=== PATIENT | female | born 1945 | race Caucasian/White ===

== ENCOUNTER 2021-11-18 12:11 | Inpatient (IN) | payer MEDICARE ==
[~2021-11-18] VITALS: Ht 152.4 cm; Wt 47.6 kg
[2021-11-18] MEDS ORDERED: SODIUM CHLORIDE 0.9% 1000ML 1,000 ML IV STA (13:04)
[2021-11-18] MEDS ORDERED: CEFTRIAXONE 1 GM VIAL IV ONE (13:15)
[2021-11-18 13:45] LABS: BASOPHILS # (AUTO) 0.1 (0.0-0.1); BASOPHILS % 0.4 % (0.0-1.0); EOSINOPHILS % 0.1 % (0.0-6.0); HEMATOCRIT 37.9 % (34.2-44.1); HEMOGLOBIN 11.2 g/dL (12.0-16.0); LYMPHOCYTES % 7.2 % (18.0-39.1); MEAN CORPUSCULAR HEMOGLOBIN 27.4 pg (28-32); MEAN CORPUSCULAR HGB CONC 29.6 g/dL (31-35); MEAN CORPUSCULAR VOLUME 92.7 fL (81-99); MONOCYTES # (AUTO) 0.5 (0.2-0.8); MONOCYTES % 3.2 % (4.4-11.3); NEUTROPHILS # (AUTO) 12.6 (2.1-6.9); NEUTROPHILS % 88.5 % (38.7-80.0); PLATELET COUNT 280 x10e3/uL (140-360); RED BLOOD COUNT 4.09 x10e6/uL (3.6-5.1); RED CELL DISTRIBUTION WIDTH 15.4 % (11.7-14.4)
[2021-11-18 14:14] LABS: ALBUMIN 3.4 g/dL (3.5-5.0); ALBUMIN/GLOBULIN RATIO 0.8 (0.8-2.0); ANION GAP 18.8 mmol/L (8-16); CALCIUM 10.9 mg/dL (8.4-10.2); CREATININE, SERUM 0.84 mg/dL (0.57-1.11); POTASSIUM 3.8 mmol/L (3.5-5.1)
[2021-11-18 14:44] LABS: THYROID STIMULATING HORMONE 0.129 uIU/mL (0.350-4.940)
[2021-11-18 15:33] LABS: CLARITY,URINE HAZY (CLEAR); COLOR,URINE YELLOW (YELLOW); KETONES,URINE NEGATIVE (NEGATIVE); LEUKOCYTE ESTERASE ,URINE MODERATE (NEGATIVE); NITRITE,URINE NEGATIVE (NEGATIVE); PROTEIN,URINE DIPSTICK 2+ (NEGATIVE); URINE UROBILINOGEN 0.2 mg/dL (0.2 - 1)
[2021-11-18 15:35] LABS: AMPHETAMINES SCREEN,URINE NEGATIVE (NEGATIVE); BENZODIAZEPINES SCREEN,URINE NEGATIVE (NEGATIVE); PHENCYCLIDINE SCREEN,URINE NEGATIVE (NEGATIVE)
[2021-11-18 15:42] LABS: BACTERIA,URINE MANY /HPF; WBC,URINE (MAN) >50 /HPF (0-5)
[2021-11-18] MEDS ORDERED: ASPIRIN 81 MG CHEW TAB PO ONE (16:15)
[2021-11-18] MEDS ORDERED: ONDANSETRON HCL INJ 2MG/ML 2ML 2 MG/ML VIAL IV PRN (16:15)
[2021-11-18] MEDS ORDERED: SODIUM CHLORIDE FLUSH 10 ML SYR INJ PRN (16:15)
[2021-11-18] MEDS: SODIUM CHLORIDE 0.9% 1000ML 1,000 ML IV SCH ×2 (17:09→20:39)
[2021-11-18] MEDS ORDERED: ISOSORBIDE MONO60 MG PO (18:47)
[2021-11-18] MEDS ORDERED: LEVOTHYROXINE150 MCG PO (18:47)
[2021-11-18] MEDS ORDERED: ROSUVASTATIN CA20 MG PO (18:47)
[2021-11-18] MEDS ORDERED: GABAPENTIN400 MG PO (18:47)
[2021-11-18] MEDS ORDERED: DIGOXIN125 MCG PO (18:47)
[2021-11-18] MEDS ORDERED: ELIQUIS2.5 MG PO (18:47)
[2021-11-18] MEDS ORDERED: CALCITRIOL0.25 MCG PO (18:47)
[2021-11-18] MEDS ORDERED: FLUOXETINE HCL20 MG PO (18:47)
[2021-11-18] MEDS ORDERED: BENAZEPRIL HCL5 MG PO (18:47)
[2021-11-18 20:04] VITALS: BP 162/81
[2021-11-18 21:29] VITALS: BP 165/85
[2021-11-18 22:42] VITALS: BP 165/85
[2021-11-19] VITALS (8 sets, daily range): BP systolic 156–182; BP diastolic 67–84
[2021-11-19] MEDS: SODIUM CHLORIDE 0.9% 1000ML 1,000 ML IV SCH (05:28)
[2021-11-19 06:02] LABS: BASOPHILS % 0.3 % (0.0-1.0); EOSINOPHILS % 0.1 % (0.0-6.0); HEMATOCRIT 34.4 % (34.2-44.1); HEMOGLOBIN 10.2 g/dL (12.0-16.0); LYMPHOCYTES # (AUTO) 1.1 (1.0-3.2); LYMPHOCYTES % 8.3 % (18.0-39.1); MEAN CORPUSCULAR HEMOGLOBIN 27.3 pg (28-32); MEAN CORPUSCULAR HGB CONC 29.7 g/dL (31-35); MEAN CORPUSCULAR VOLUME 92.2 fL (81-99); MONOCYTES # (AUTO) 0.7 (0.2-0.8); MONOCYTES % 5.1 % (4.4-11.3); NEUTROPHILS # (AUTO) 11.5 (2.1-6.9); NEUTROPHILS % 85.5 % (38.7-80.0); PLATELET COUNT 235 x10e3/uL (140-360); RED BLOOD COUNT 3.73 x10e6/uL (3.6-5.1); RED CELL DISTRIBUTION WIDTH 15.4 % (11.7-14.4)
[2021-11-19 06:48] LABS: ALBUMIN 2.7 g/dL (3.5-5.0); ALBUMIN/GLOBULIN RATIO 0.8 (0.8-2.0); ANION GAP 15.6 mmol/L (8-16); CALCIUM 8.9 mg/dL (8.4-10.2); CREATININE, SERUM 0.8 mg/dL (0.57-1.11); POTASSIUM 3.6 mmol/L (3.5-5.1)
[2021-11-19 07:21] LABS: CREATINE KINASE MB 1.3 ng/mL (0-5.0)
[2021-11-19] MEDS: DIGOXIN 0.125 MG TAB PO SCH (12:16)
[2021-11-19] MEDS: ISOSORBIDE MONONITRATE 30 MG TAB CR PO SCH (12:17)
[2021-11-19] MEDS: HYDRALAZINE HCL 20 MG/ML VIAL IV PRN (12:17)
[2021-11-19] MEDS ORDERED: IOPAMIDOL 370 MG/ML 100 ML INFUS..BTL INJ ONE (12:32)
[2021-11-19] MEDS: SODIUM BICARBONATE 8.4% 50 ML in SODIUM CHLORIDE 0.45% 1,000 ML IV SCH (13:00)
[2021-11-19 15:31] LABS: CREATINE KINASE MB 1.6 ng/mL (0-5.0)
[2021-11-19] MEDS ORDERED: SODIUM CHLORIDE 0.45% 1,000 ML ONE (20:49)
[2021-11-19] MEDS: CRESTOR 10MG PO SCH (20:51)
[2021-11-19] MEDS ORDERED: SODIUM BICARBONATE 8.4% SYRING 50 ML ONE (23:39)
[2021-11-20] VITALS (9 sets, daily range): BP systolic 150–170; BP diastolic 66–98
[2021-11-20] MEDS: SODIUM BICARBONATE 8.4% 50 ML in SODIUM CHLORIDE 0.45% 1,000 ML IV SCH ×3 (00:10→17:19)
[2021-11-20] MEDS: SODIUM CHLORIDE 0.9% 1000ML 1,000 ML IV SCH ×3 (00:10→23:17)
[2021-11-20 01:53] LABS: ANION GAP 13.6 mmol/L (8-16); CALCIUM 8.6 mg/dL (8.4-10.2); CREATININE, SERUM 0.82 mg/dL (0.57-1.11); POTASSIUM 3.6 mmol/L (3.5-5.1)
[2021-11-20] MEDS: LEVOTHYROXINE SODIUM 75 MCG TAB PO SCH (06:09)
[2021-11-20 06:47] LABS: BASOPHILS % 0.3 % (0.0-1.0); EOSINOPHILS % 0.2 % (0.0-6.0); HEMATOCRIT 32.7 % (34.2-44.1); HEMOGLOBIN 9.8 g/dL (12.0-16.0); LYMPHOCYTES # (AUTO) 1.3 (1.0-3.2); LYMPHOCYTES % 10.4 % (18.0-39.1); MEAN CORPUSCULAR HEMOGLOBIN 27.6 pg (28-32); MEAN CORPUSCULAR VOLUME 92.1 fL (81-99); MONOCYTES # (AUTO) 0.9 (0.2-0.8); MONOCYTES % 7.2 % (4.4-11.3); NEUTROPHILS # (AUTO) 10.2 (2.1-6.9); PLATELET COUNT 223 x10e3/uL (140-360); RED BLOOD COUNT 3.55 x10e6/uL (3.6-5.1); RED CELL DISTRIBUTION WIDTH 15.6 % (11.7-14.4)
[2021-11-20] MEDS ORDERED: NON-FORMULARY MEDICATION (Levothyroxine Sodium 150 MCG) PO SCH (09:00)
[2021-11-20] MEDS ORDERED: NON-FORMULARY MEDICATION (Isosorbide Mononitrate (Isosorbide Mononitrate Er) 60 MG) PO SCH (09:00)
[2021-11-20] MEDS ORDERED: NON-FORMULARY MEDICATION (Rosuvastatin Calcium 20 MG) PO SCH (09:00)
[2021-11-20] MEDS: CALCITRIOL 0.25 MCG CAP PO SCH (09:33)
[2021-11-20] MEDS: FLUOXETINE HCL 20 MG CAP PO SCH (09:33)
[2021-11-20] MEDS: DIGOXIN 0.125 MG TAB PO SCH (09:34)
[2021-11-20] MEDS: ISOSORBIDE MONONITRATE 30 MG TAB CR PO SCH (09:35)
[2021-11-20] MEDS ORDERED: SYMBICORT 16010.2 GM INH (11:45)
[2021-11-20] MEDS ORDERED: KLONOPIN1 MG PO (11:47)
[2021-11-20] MEDS ORDERED: ALLOPURINOL100 MG PO (11:47)
[2021-11-20] MEDS ORDERED: TRAZODONE HCL100 MG PO (11:47)
[2021-11-20] MEDS ORDERED: METOPROLOL TART25 MG PO (13:17)
[2021-11-20] MEDS ORDERED: BUMETANIDE1 MG PO (13:17)
[2021-11-20] MEDS: CRESTOR 10MG PO SCH (21:09)
[2021-11-20] MEDS ORDERED: SODIUM CHLORIDE 0.9% 250ML 250 ML ONE (21:28)
[2021-11-21] VITALS (7 sets, daily range): BP systolic 143–179; BP diastolic 71–85
[2021-11-21] MEDS: HYDRALAZINE HCL 20 MG/ML VIAL IV PRN ×3 (00:45→23:17)
[2021-11-21] MEDS: SODIUM BICARBONATE 8.4% 50 ML in SODIUM CHLORIDE 0.45% 1,000 ML IV SCH (04:16)
[2021-11-21] MEDS: LEVOTHYROXINE SODIUM 75 MCG TAB PO SCH (06:29)
[2021-11-21] MEDS: BUDESONIDE/FORMOTEROL 160/4.5MCG INHALER INH SCH (09:45)
[2021-11-21] MEDS: ISOSORBIDE MONONITRATE 30 MG TAB CR PO SCH (09:58)
[2021-11-21] MEDS: CALCITRIOL 0.25 MCG CAP PO SCH (09:59)
[2021-11-21] MEDS: FLUOXETINE HCL 20 MG CAP PO SCH (09:59)
[2021-11-21] MEDS: ALLOPURINOL 100 MG TAB PO SCH (09:59)
[2021-11-21] MEDS: DIGOXIN 0.125 MG TAB PO SCH (09:59)
[2021-11-21] MEDS: METOPROLOL TARTRATE 25 MG TAB PO SCH ×2 (10:00→16:44)
[2021-11-21] MEDS: BUMETANIDE 1 MG TAB PO SCH (11:20)
[2021-11-21] MEDS ORDERED: TRAZODONE HCL 50 MG TAB PO SCH (21:00)
[2021-11-21] MEDS: CRESTOR 10MG PO SCH (21:12)
[2021-11-22] VITALS: BP 155/71
[2021-11-22 04:00] VITALS: BP 145/69
[2021-11-22 05:57] LABS: BASOPHILS # (AUTO) 0.1 (0.0-0.1); BASOPHILS % 0.4 % (0.0-1.0); EOSINOPHILS # (AUTO) 0.1 (0.0-0.4); EOSINOPHILS % 0.7 % (0.0-6.0); HEMATOCRIT 34.6 % (34.2-44.1); HEMOGLOBIN 10.3 g/dL (12.0-16.0); LYMPHOCYTES # (AUTO) 0.9 (1.0-3.2); LYMPHOCYTES % 7.8 % (18.0-39.1); MEAN CORPUSCULAR HEMOGLOBIN 27.3 pg (28-32); MEAN CORPUSCULAR HGB CONC 29.8 g/dL (31-35); MEAN CORPUSCULAR VOLUME 91.8 fL (81-99); MONOCYTES # (AUTO) 0.7 (0.2-0.8); MONOCYTES % 6.4 % (4.4-11.3); NEUTROPHILS # (AUTO) 9.5 (2.1-6.9); NEUTROPHILS % 83.6 % (38.7-80.0); PLATELET COUNT 221 x10e3/uL (140-360); RED BLOOD COUNT 3.77 x10e6/uL (3.6-5.1); RED CELL DISTRIBUTION WIDTH 15.9 % (11.7-14.4)
[2021-11-22] MEDS: LEVOTHYROXINE SODIUM 75 MCG TAB PO SCH (06:12)
[2021-11-22 06:32] LABS: ANION GAP 16.2 mmol/L (8-16); CALCIUM 7.8 mg/dL (8.4-10.2); CREATININE, SERUM 0.71 mg/dL (0.57-1.11); POTASSIUM 3.2 mmol/L (3.5-5.1)
[2021-11-22] MEDS: BUDESONIDE/FORMOTEROL 160/4.5MCG INHALER INH SCH (07:16)
[2021-11-22 08:44] VITALS: BP 176/85
[2021-11-22] MEDS ORDERED: POTASSIUM CHLORIDE 10MEQ EA PO ONE (08:45)
[2021-11-22] MEDS: ISOSORBIDE MONONITRATE 30 MG TAB CR PO SCH (08:53)
[2021-11-22] MEDS: METOPROLOL TARTRATE 25 MG TAB PO SCH (08:53)
[2021-11-22] MEDS: FLUOXETINE HCL 20 MG CAP PO SCH (08:53)
[2021-11-22] MEDS: CALCITRIOL 0.25 MCG CAP PO SCH (08:53)
[2021-11-22] MEDS: ALLOPURINOL 100 MG TAB PO SCH (08:53)
[2021-11-22] MEDS: DIGOXIN 0.125 MG TAB PO SCH (08:53)
[2021-11-22] MEDS: BUMETANIDE 1 MG TAB PO SCH (08:54)
[2021-11-22 09:30] VITALS: BP 176/85
== END 2021-11-22 11:45 | disposition home or self-care (01) | DRG 689 ==
LOC: ER 12:20 → ERHOLD 16:14 → MED/SURG2 20:04
PROVIDERS: ADMIT Internal Medicine; ATTEND Internal Medicine
PROC: 8E0ZXY6 Isolation (ICD-10-PCS; principal; 2021-11-18)
DX: N12 Tubulo-interstitial nephritis, not specified as acute or chronic (principal); G92.8 Other toxic encephalopathy; U07.1 COVID-19; I48.20 Chronic atrial fibrillation, unspecified; S09.90XA Unspecified injury of head, initial encounter; W19.XXXA Unspecified fall, initial encounter; Z91.81 History of falling; I11.0 Hypertensive heart disease with heart failure; I50.9 Heart failure, unspecified; Z79.01 Long term (current) use of anticoagulants; I25.10 Atherosclerotic heart disease of native coronary artery without angina pectoris; Z95.1 Presence of aortocoronary bypass graft; E78.5 Hyperlipidemia, unspecified; Z87.440 Personal history of urinary (tract) infections; Z88.8 Allergy status to other drugs, medicaments and biological substances; S00.83XA Contusion of other part of head, initial encounter; E87.8 Other disorders of electrolyte and fluid balance, not elsewhere classified; N32.3 Diverticulum of bladder; N30.90 Cystitis, unspecified without hematuria
CPT/HCPCS: 0223U; 36415; 70450; 70486; 71045; 72125; 74177; 80048; 80053; 80307; 80320; 81001; 82140; 82550; 82553; 83605; 84443; 84484; 85025; 87040; 93005; 94664; 94799; 96361; 99251; 99285; J0360; J0692; J0696; J7030; J7050; Q9967